=== PATIENT | female | born 1955 | race Caucasian/White ===

== ENCOUNTER 2019-12-23 08:48 | Emergency (ER) | payer SELFPAY ==
--- NOTE | 2019-12-23 09:35 | RAD ---
XR Hand Rt 3 View STANDARD History: Injury Comparison: None. Findings: Extensive film artifact. No acute displaced fracture or malalignment. Soft tissues are unremarkable. Impression: No acute osseous abnormality.
--- NOTE | 2019-12-23 09:37 | RAD ---
XR Elbow Lt 4 View STANDARD History: Injury Comparison: None. Findings: No significant joint effusion. No displaced fracture. Osteophyte formation of the supine tu bercle of the ulna. Chronic lateral epicondylitis with enthesopathic change common extensor tendon. Radial head and neck are intact. Impression: Chronic findings. No acute osseous abnormality.
--- NOTE | 2019-12-23 09:45 | CT ---
CT Brain WO Con History: Headache Comparison: None. Findings: No acute hemorrhage or infarct. No midline shift or mass effect. Ventricular size and extra -axial CSF spaces are normal. The globes are intact. Calvarium is intact. Paranasal sinuses and mastoids are relatively clear. Left pickering bowing of the osseous nasal septum as well as a posterior left sided Impression: No acute intracranial abnormality.
== END 2019-12-23 09:58 | disposition home or self-care (01) ==
LOC: MADERS 08:48
DX: S09.90XA Unspecified injury of head, initial encounter (principal); S50.02XA Contusion of left elbow, initial encounter; E11.9 Type 2 diabetes mellitus without complications; E03.9 Hypothyroidism, unspecified; E78.5 Hyperlipidemia, unspecified; E78.00 Pure hypercholesterolemia, unspecified; I10 Essential (primary) hypertension; F17.210 Nicotine dependence, cigarettes, uncomplicated; F32.9 Major depressive disorder, single episode, unspecified; Z79.84 Long term (current) use of oral hypoglycemic drugs; Z79.82 Long term (current) use of aspirin; Z79.899 Other long term (current) drug therapy; V89.2XXA Person injured in unspecified motor-vehicle accident, traffic, initial encounter
CPT/HCPCS: 70450